=== PATIENT | female | born 1945 | race Caucasian/White ===

== ENCOUNTER → 2016-09-25 | Outpatient (REF) ==
[~2016-09-25] MED LIST: ALDACTONE 25MG25 M1 PO; ALDACTONE 25MG25 MG PO; AMBIEN 5MG TABLE5 MG PO; ANASTROZOLE1 MG PO; ANTIVERT 25MG25 MG PO; ARIMIDEX1 MG PO; ASPIRIN 81M81 MG/TA2 PO; ATROVENT I0.2 MG/1 M IH; BACTRIM DS 8001 TAB PO; BIOTIN300 MCG PO; CLEOCIN HCL300 MG PO; CYTOMEL 5MC5 MCG/TAB PO; GLUCOPHAGE500 MG/TAB PO; HCA STOOL SOFT100 MG PO; INSLANT SQ; IPRATROPIUM BROM3 M1 IH; LEVAQUIN 750MG750 M1 PO; LEVOTHYROXINE0.05 MG PO; LIOTHYRONINE S25 MCG PO; LIOTHYRONINE SO5 MCG PO; MECLIZINE25 M1 PO; METFORMIN500 MG PO; OMEPRAZOLE20 M1 PO; PRILOSEC 20MG20 MG PO; PRILOSEC10 MG PO; PULMO-AIDE COMP1 DE1; SENOKOT-S TAB1 UDTAB PO; SERTRALINE50 MG PO; SIMVASTATIN40 MG PO; SIMVASTATIN5 MG PO; SYNTHROID0.05 MG/TA PO; VICODIN 5/5001 UDTAB PO; ZOCOR 40MG40 MG PO; ZOLOFT 50MG50 MG PO; ZOLOFT50 MG PO; ZOLPIDEM5 MG PO
[2016-09-25 11:26] LABS: THYROID STIMULATING HORMONE 0.358 uIU/mL (0.465-4.680)
== END ==
LOC: ZLAB.WCH 10:12
PROVIDERS: Internal Medicine
DX: Z01.89 Encounter for other specified special examinations (principal)

== ENCOUNTER → 2017-01-23 | Outpatient (REF) ==
[2017-01-23 18:52] LABS: THYROID STIMULATING HORMONE 2.05 uIU/mL (0.465-4.680)
== END ==
LOC: ZLAB.WCH 18:01
PROVIDERS: Internal Medicine
DX: Z01.89 Encounter for other specified special examinations (principal)

== ENCOUNTER → 2017-02-20 | Outpatient (REF) ==
[2017-02-20 18:52] LABS: THYROID STIMULATING HORMONE 2.17 uIU/mL (0.465-4.680)
== END ==
LOC: ZLAB.WCH 18:11
PROVIDERS: Internal Medicine
DX: Z01.89 Encounter for other specified special examinations (principal)

== ENCOUNTER → 2017-06-17 | Outpatient (REF) | LOC: ZLAB.WCH 19:36 | DX: Z01.89 Encounter for other specified special examinations (principal) ==

== ENCOUNTER → 2018-04-13 | Outpatient (REF) | LOC: ZLAB.WCH 18:29 | DX: Z01.89 Encounter for other specified special examinations (principal) ==

== ENCOUNTER → 2018-09-07 | Outpatient (REF) | LOC: ZLAB.WCH 16:01 | DX: Z01.89 Encounter for other specified special examinations (principal) ==

== ENCOUNTER 2019-06-16 16:34 | Emergency (ER) | payer MEDICARE, OTHER ==
[~2019-06-16] VITALS: Ht 157.5 cm; Wt 68.2 kg
[2019-06-16 17:06] LABS: BASO % 0.4 % (0.0-2.0); EOS # 0.2 (0.0-0.7); GRAN # 6.5 (1.4-6.5); GRAN % 70.2 % (42.2-75.2); HEMATOCRIT 37.1 % (37.0-47.0); HEMOGLOBIN 12.4 g/dl (12.5-16.0); LYMPH # 1.9 (1.2-3.4); LYMPH % 19.9 % (20.0-51.0); MEAN CELL VOLUME 94 fl (80.0-100.0); MEAN CORPUSCULAR HEMOGLOBIN 31 pg (27.0-31.0); MEAN CORPUSCULAR HGB CONC 33 g/dl (33.0-37.0); MEAN PLATELET VOLUME 9.7 fl (7.4-10.4); MONO # 0.7 (0.1-0.6); MONO % 7.3 % (1.7-9.3); PLATELET COUNT 173 K/mm3 (130-400); RED BLOOD COUNT 3.95 M/mm3 (4.10-5.30); REDCELL DISTRIBUTION WIDTH-CV 13.2 % (11.5-14.5)
[2019-06-16 17:10] LABS: PROTHROMBIN TIME 11.5 SECONDS (9.7-12.8)
[2019-06-16 17:15] LABS: ALBUMIN 4.5 gm/dL (3.5-5.0); BILIRUBIN,TOTAL 0.4 mg/dL (0.0-1.0); CALCIUM 9.5 mg/dL (8.4-10.2); CREATININE, serum 0.86 (0.52-1.25); POTASSIUM 3.7 mmol/L (3.4-5.0); TOTAL PROTEIN 7.5 gm/dL (6.4-8.2)
[2019-06-16 17:25] LABS: COLLECTION METHOD CLEAN CATCH
[2019-06-16 17:33] LABS: PH 6 (5-8); SQUAMOUS EPITHELIAL 0-2 /hpf; URINE APPEARANCE Clear; URINE BACTERIA None Seen /hpf; URINE BILIRUBIN Negative (NEGATIVE); URINE BLOOD Negative (NEGATIVE); URINE COLOR Straw; URINE GLUCOSE Negative (NEGATIVE); URINE KETONE Negative (NEGATIVE); URINE LEUKOCYTE ESTERASE Negative (NEGATIVE); URINE NITRATE Negative (NEGATIVE); URINE PROTEIN(semi-quant) Negative (NEGATIVE); URINE RBC None Seen /hpf; URINE UROBILINOGEN Negative (NEGATIVE)
[2019-06-16] MEDS ORDERED: LIPITOR20 MG PO (19:06)
[2019-06-16] MEDS ORDERED: ASPIRIN 81M81 MG/TA2 PO (19:06)
[2019-06-16] MEDS ORDERED: BIOTIN300 MCG PO (19:06)
[2019-06-16] MEDS ORDERED: NEURONTIN100 MG/CAP PO (19:06)
[2019-06-16] MEDS ORDERED: VITAMIN B11000 MCG/M IM (19:07)
[2019-06-16] MEDS ORDERED: AMARYL4 MG PO (19:07)
[2019-06-16] MEDS ORDERED: GLUCOPHAGE500 MG/TAB PO (19:08)
[2019-06-16] MEDS ORDERED: DITROPAN 5MG TAB5 MG PO (19:08)
[2019-06-16 22:52] VITALS: BP 126/76; PULSE 68; TEMP 98.4
== END 2019-06-16 22:55 | disposition short-term general hospital (02) ==
LOC: COL.ER 16:34
PROVIDERS: Emergency Medicine
DX: I66.9 Occlusion and stenosis of unspecified cerebral artery (principal); G45.9 Transient cerebral ischemic attack, unspecified; E11.9 Type 2 diabetes mellitus without complications; I10 Essential (primary) hypertension; E78.5 Hyperlipidemia, unspecified; Z79.82 Long term (current) use of aspirin; Z79.84 Long term (current) use of oral hypoglycemic drugs
CPT/HCPCS: A9585; J2060; J7030